=== PATIENT | male | born 1975 | race African-American/Black ===

== ENCOUNTER 2018-05-05 16:37 | Emergency (ER) | payer MEDICARE, MEDICAID ==
[~2018-05-05] VITALS: Ht 205.7 cm; Wt 75.0 kg
[~2018-05-05 16:37] MED LIST: LOT10; METOPROLOL; WARF10TA21 PO
[2018-05-05 17:06] VITALS: BP 142/80
== END 2018-05-05 22:27 | disposition left against medical advice (07) ==
LOC: ER 17:39
DX: Z53.21 Procedure and treatment not carried out due to patient leaving prior to being seen by health care provider (principal)